=== PATIENT | female | born 1980 | race Caucasian/White ===

== ENCOUNTER → 2016-10-16 | Day surgery (SDC) | payer OTHER ==
[~2016-10-16] VITALS: Ht 160 cm; Wt 57.2 kg
[~2016-10-16] MED LIST: BUPIVACAINE HCL 0.25% 30 ML VIAL As Ordered ONE; GLYCOPYRROLATE INJ 0.2 MG/ML 2 ML VIAL As Ordered ONE; KETOROLAC 60 MG/2 ML VIAL (J1885) As Ordered ONE; LIDOCAINE 2% INJ 100 MG/5 ML SDV (FOR ANES.) As Ordered ONE; LR 1,000 ML IV SCH; MEPERIDINE INJ 25 MG/ML VIAL (J2175) As Ordered ONE; METOCLOPRAMIDE INJ 10MG/2ML VIAL (J2765) IV PRN; MIDAZOLAM INJ 2 MG/2 ML VIAL (J2250) As Ordered ONE; NEOSTIGMINE 1MG/ML 5 ML SYRINGE (J2710) As Ordered ONE; ONDANSETRON 4MG/2ML VIAL (J2405) As Ordered ONE; ONDANSETRON 4MG/2ML VIAL (J2405) IV PRN; PERCOCET 5MG/325MG TAB PO PRN; PROPOFOL 200 MG/20 ML VIAL As Ordered ONE; ROCURONIUM BROMIDE 50 MG/5 ML VIAL As Ordered ONE; ZOLO50TA PO; ePHEDrine SULFATE 25 MG/5 ML(5MG/ML) SYRINGE As Ordered ONE; fentaNYL 100 MCG/2 ML INJECTION (J3010) As Ordered ONE; fentaNYL 100 MCG/2 ML INJECTION (J3010) IV PRN
[2016-10-16 10:28] LABS: CONTROL LINE HCG INT CTR LINE PRESENT
[2016-10-16] MEDS: MEPERIDINE INJ 25 MG/ML VIAL (J2175) IV PRN ×2 (13:45→13:50)
[2016-10-16 16:45] VITALS: BP 100/57
--- NOTE | 2016-10-17 18:23 | RO ---
DATE OF PROCEDURE: 10/16/2016 PREOPERATIVE DIAGNOSES: Abnormal uterine bleeding, possible polyp, and dyspareunia. POSTOPERATIVE DIAGNOSIS: Abnormal uterine bleeding, not otherwise specified; abdominal adhesions related to prior sections; and dyspareunia. OPERATIVE PROCEDURE: Diagnostic hysteroscopy with dilation and curettage. Operative laparoscopy with lyses of adhesions. SURGEON: Faith Mata MD COAL HANDLER: Mary Eduardo MD CLINICAL SERVICE: Gynecological (JUNIOR ESTIMATOR). ANESTHESIA: INDICATION FOR OPERATION: Alisa is a 36-year-old, G5, P4-1-0-6, with history of five prior sections using vasectomy for contraception who has dyspareunia times several years and an endometrial polyp seen on transvaginal ultrasound performed for her heavy irregular periods. MATERIAL FORWARDED TO THE LAB FOR EXAMINATION: Endometrial curettings. DESCRIPTION OF FINDINGS: Uterus sounded to 9 cm. Uterus is anteverted. Hysteroscopic findings included a normal appearing endometrial cavity with no evidence of any polyp. Both uterine ostia were visualized. LAPAROSCOPIC FINDINGS: Included a normal appearing uterus, fallopian tubes, ovaries, appendix, liver edge, and gallbladder. There was some scarring of the bladder to the uterus, which is consistent with normal postoperative changes after sections, and then she did have an omental adhesion to the anterior abdominal wall. INFECTION CLASSIFICATION: II. ESTIMATED BLOOD LOSS: 5 mL DESCRIPTION OF OPERATION: After obtaining informed consent, Alisa was taken to the operating room. General endotracheal anesthesia was established, and she was placed in low lithotomy position. She was prepped and draped in the usual sterile fashion and placed in Trendelenburg position. Perez catheter was placed, and bivalve speculum was placed in the vagina with visualization of the cervix obtained. Anterior lip of the cervix was grasped with a single-tooth tenaculum, and the cervix was sequentially dilated using Hanks dilators. Uterus sound to 9 cm. A Hulka uterine manipulator was placed into the cervix, and tenaculum was removed with site hemostasis was observed. Greenwood speculum was removed. She was taken out of Trendelenburg position, and a 5 mm incision was made in the infraumbilical folds and into subcutaneous tissue. Pati clamp was used to spread the subcutaneous tissue. Lower abdominal wall was manually grabbed and lifted up, and an Optiview trocar was placed at a 90-degree angle. Laparoscope was advanced through the port, and intra-abdominal placement was confirmed. Continuous flow carbon dioxide began to establish a pneumoperitoneum at 15 mmHg pressure. We then did a thorough abdominopelvic survey, and she had normal appearing uterus with scarring of the bladder to the uterus consistent with her prior sections. Normal appearing fallopian tubes and ovaries. The anterior cul-de-sac, posterior cul-de-sac were normal in appearance. Appendix was normal in appearance as well as liver edge and gallbladder. She did have an omental adhesion up to the anterior abdominal wall, which we took down using the harmonic scalpel with complete hemostasis noted. At that point, we released the pneumoperitoneum prior to removal of the ports. We had placed two extra ports in her right lower quadrant and left lower quadrant, both 5 mm in size. These were removed after the pneumoperitoneum was released, and then the umbilical port was removed. The incisions were reapproximated with #4-0 Monocryl and Dermabond. At that point, we turned our attention to the hysteroscopic portion of the procedure. The speculum was replaced in the vagina, and Hulka uterine manipulator was removed. Tenaculum replaced on the anterior aspect of the cervix, and the cervix was dilated with Hanks dilators just enough so that a hysteroscopic camera could be introduced through the fundus. No polyp was identified. The endometrial cavity was very normal in appearance with scant tissue. Both of the ostia were visualized. The camera was removed after removing the fluid, and curetting was performed to scrape the endometrial lining. Good cry was noted in 360 degrees. The tissue specimen was sent off to pathology. Tenaculum was removed from the cervix, and there was continued oozing from the left tenaculum site so one figure-of-8 stitch using #0 Vicryl suture was used to gain complete hemostasis. Greenwood speculum was removed, and nothing was retained in the vagina. All counts were correct times two, and the patient was awakened from general anesthesia and taken to the recovery room in good condition. FLUIDS: Lactated Ringer's, 1600 mL. URINE OUTPUT: 300 mL via Perez that was removed at the end of the procedure.
== END ==
LOC: M SDC 09:26
PROVIDERS: ATTEND Obstetrics & Gynecology
DX: N93.9 Abnormal uterine and vaginal bleeding, unspecified (principal); N94.10 Unspecified dyspareunia; N99.4 Postprocedural pelvic peritoneal adhesions; F41.9 Anxiety disorder, unspecified; F32.9 Major depressive disorder, single episode, unspecified; M54.2 Cervicalgia; G43.909 Migraine, unspecified, not intractable, without status migrainosus; F43.10 Post-traumatic stress disorder, unspecified; Z79.899 Other long term (current) drug therapy; Z88.5 Allergy status to narcotic agent; Z88.8 Allergy status to other drugs, medicaments and biological substances; Z91.040 Latex allergy status; Z87.442 Personal history of urinary calculi
CPT/HCPCS: 36415; 49320; 58558; 84703; 85014; 85018; 86850; 86900; 86901; 88305; J1885; J2175; J2250; J2405; J2710; J3010